=== PATIENT | male | born 1965 | race Caucasian/White ===

== ENCOUNTER → 2017-05-09 | Outpatient (CLI) | payer OTHER ==
[~2017-05-09] MED LIST: LISI-519 PO; WALKER WHEELS/F1 MIS
== END ==
LOC: CPRE 12:27
PROVIDERS: ATTEND Neurological Surgery
DX: M48.02 Spinal stenosis, cervical region (principal); M50.30 Other cervical disc degeneration, unspecified cervical region; M47.12 Other spondylosis with myelopathy, cervical region

== ENCOUNTER 2017-05-16 06:01 | Observation (INO) | payer OTHER ==
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
[~2017-05-16] VITALS: Ht 165.1 cm; Wt 74.9 kg
[2017-05-16] MEDS ORDERED: LACTATED RINGER'S 1000 ML IV PRN (06:15)
[2017-05-16] MEDS ORDERED: SODIUM CHLORID 0.9% 500 ML IV PRN (06:15)
[2017-05-16] MEDS ORDERED: METOPROLOL TARTRATE 25 MG TAB PO PRN (06:15)
[2017-05-16] MEDS ORDERED: POVIDONE IODINE 5% (ANTISEPSIS KIT) 4 APPLICATIONS EACH NARE PRN (06:15)
[2017-05-16] MEDS ORDERED: CHLORHEXIDINE GLUCONATE 2 % 1 PACK (2 CLOTHS) TOPICAL PRN (06:15)
[2017-05-16] MEDS ORDERED: SODIUM CHLOR 0.9% 1000 ML INJ 1,000 ML IV SCH (06:15)
[2017-05-16] MEDS ORDERED: VANCOMYCIN 1000 MG/NS 250 ML IV SCH ×2 (06:30)
[2017-05-16] MEDS ORDERED: BUPIVACAINE/EPINEPHRINE 0.5% PF 30 ML VIAL ONE (06:46)
[2017-05-16] MEDS ORDERED: THROMBIN (TOPICAL) 5,000 UNIT VIAL ONE (06:46)
[2017-05-16] MEDS ORDERED: VANCOMYCIN HCL 1000 MG VIAL ONE (06:46)
[2017-05-16] MEDS ORDERED: GELFOAM SIZE 100 ONE (06:47)
[2017-05-16] MEDS ORDERED: MIDAZOLAM HCL 2 MG/2 ML VIAL ONE (08:00)
[2017-05-16] MEDS ORDERED: FAMOTIDINE 20 MG/2 ML VIAL ONE (08:01)
[2017-05-16] MEDS ORDERED: DEXAMETHASONE SOD PHOS 4 MG/ML VIAL ONE (09:47)
[2017-05-16] MEDS ORDERED: PROPOFOL 500 MG/50 ML INJ 100 ML ONE (10:03)
[2017-05-16] MEDS ORDERED: PROPOFOL 200 MG/20 ML AMP IV ONE (12:00)
[2017-05-16] MEDS ORDERED: LIDOCAINE HCL 1% PF 5 ML SYRINGE OTHER ONE (12:00)
[2017-05-16] MEDS ORDERED: PHENYLEPH/NS 1000 MCG/10 ML SYR IV ONE (12:00)
[2017-05-16] MEDS ORDERED: ONDANSETRON HCL 4 MG/2 ML VIAL IV PUSH ONE (12:00)
[2017-05-16] MEDS ORDERED: LACTATED RINGER'S 1000 ML INJ 1,000 ML IV ONE (12:00)
[2017-05-16] MEDS ORDERED: DEXAMETHASONE SOD PHOS 4 MG/ML VIAL IV ONE (12:00)
[2017-05-16] MEDS ORDERED: NEOSTIGMINE 3 MG/3 ML SYR IV ONE (12:00)
[2017-05-16] MEDS ORDERED: ePHEDrine/NS 25 MG/5 ML SYR IV ONE (12:00)
[2017-05-16] MEDS ORDERED: ROCURONIUM INJ 50 MG/5 ML SYRINGE IV PUSH ONE (12:00)
[2017-05-16] MEDS ORDERED: NORMOSOL R INJ 2,000 ML IV ONE (12:00)
[2017-05-16] MEDS ORDERED: DO NOT ADM ANY ANTICOAGULANT DRUGS PRN (12:11)
--- NOTE | 2017-05-16 12:31 | RADRPT ---
EXAM DATE/TIME: 05/16/2017 09:22 [facility] COMPARISON: No previous studies available for comparison. INDICATIONS : Post-op C5-C6, C6-C7 anterior cervical fusion. MEDICAL HISTORY : None. SURGICAL HISTORY : None. ENCOUNTER: Initial ACUITY: 1 day PAIN SCORE: Non-responsive. LOCATION: neck FINDINGS: Anterior fusion hardware is noted at C5 through C7 in good position. No acute fracture or prevertebra l soft tissue swelling is noted. CONCLUSION: Status post anterior cervical fusion at C5 through C7. Galileo Mead MD on May 16, 2017 at 12:29 Board Certified Radiologist. This report was verified electronically.
[2017-05-16] MEDS ORDERED: *MEPERIDINE 25 MG INJ VIAL PERIprocedural Use ONLY ONE (12:35)
--- NOTE | 2017-05-16 12:39 | RADRPT ---
EXAM DATE/TIME: 05/16/2017 09:22 [facility] COMPARISON: No previous studies available for comparison. INDICATIONS : C5-C6, C6-C7 anterior cervical fusion. Level localization. MEDICAL HISTORY : None. SURGICAL HISTORY : None. ENCOUNTER: Initial ACUITY: 1 day PAIN SCORE: Non-responsive. LOCATION: neck FINDINGS: A single magnified C-arm spot views in lateral projection of the cervical spine. There is an anterior probe projecting towards the C6-C7 disc space. There is disc space narrowing at C5-C6 and C6-C7. A m ild grade 1 anterolisthesis of C4 on C5 and C3 on C4. CONCLUSION: Limited image as detailed above. Arvin Clinton Jr., MD on May 16, 2017 at 12:25 Board Certified Radiologist. This report was verified electronically.
--- NOTE | 2017-05-16 12:41 | PD.OP ---
Fabricio Rogel MD Operative Report Date of Surgery: May 16, 2017 Preoperative Diagnosis: Intractable neck pain with myeloradiculopathy; C5-6 and C6-7 severe disc degeneration with disc osteophyte complex associated spinal and foraminal stenosis with spinal cord compression Postoperative Diagnosis: Same Procedure: Anterior cervical C5-6 and C6-7 interbody fusion; anterior C5-7 cervical plate placement; C5-6 and C6-7 interbody cage placement; microsurgical technique Anesthesia: Gen. endotracheal by Jairo deshpande Surgeon: Damon Spicer M.D. Manager Consumer(s): Bonita Kirby Operation and Findings: Following administration of general endotracheal anesthesia with the neck maintaining a neutral position in a Poinsett collar, the patient received a gram of vancomycin and Decadron 10 mg intravenously. Sequential compression devices were placed in supine position on a Vignesh table and all pressure points adequately padded. The head secured in a donut and anterior cervical region then shaved and prepped with Chloraprep and sterilely draped with Ioban along with the usual sterile draping. A transverse skin incision on the left side of the neck was then made after infiltrating the skin with 0.5% Marcaine with epinephrine solution extending down through the platysma. At the anterior border of the sternocleidomastoid further dissection was undertaken developing a plane between the carotid sheath laterally and the trachea esophagus medially. The prevertebral fascia was exposed and dissected out. The medial attachments of the longus colli muscles were detached and a self-retaining retractor used for exposure. The C5-6 disc space was localized with a marking the disc space and using lateral fluoroscopy. Wilson distraction screws 14 mm length were placed one in the C5 and one in the C7 body interbody distraction and exposure. There was significant disc degeneration with disc height collapse and anterior osteophytes noted at the C5-6 and C6-7 levels and the osteophytes were resected with a Leksell and annulus incised with a 15 blade and further dissection undertaken using microtechnique with microscope magnification. Diskectomy was undertaken with pituitaries and the endplates were also decorticated with curettes and drill bit. And more posteriorly there was disk osteophyte complex compressing the thecal sac along with a significant uncovertebral joint hypertrophy with foraminal stenosis which was decompressed along with removal of the posterior longitudinal ligaments at both levels. The foramen was decompressed bilaterally using a Kerrison's and palpation with a nerve hook, the exiting nerve roots were felt to be free. The area was then copiously irrigated. I then placed a Peek cage packed with local autograft bone at the C5-6 and C6-7 interspaces under fluoroscopy guidance. Wilson distraction pins were removed and the holes plugged with Gelfoam for hemostasis. In order to facilitate the fusion and provide stabilization, a Precision spine cervical plate was then placed with two 14 mm variable angle screws in the C5 body, one in the C6 body and two 14 mm fixed angle screws in the C7 body. The plate screw locking mechanism was then engaged. AP and lateral fluoroscopy confirmed good placement of the construct and the retractor was then removed. Muscular bleeding points were cauterized with bipolar cautery and Gelfoam was then also used for hemostasis which was removed. The platysma was then approximated using 3-0 Vicryl interrupted stitches and 3-0 Vicryl subcuticular stitch also placed in an interrupted fashion, and final skin closure was with Mastisol and Steri-Strips. Sterile dressing was then applied. The neck immobilized in a Poinsett collar. The patient was then extubated and taken to the recovery room. There are no intraoperative complications and all sponge and needle counts were correct at the end of procedure. Estimated blood loss was about 50 cc. The patient did undergo intraoperative neurologic monitoring which remained stable throughout the surgery. Damon Spicer MD May 16, 2017 12:41
[2017-05-16] MEDS ORDERED: MORPHINE SULFATE 4 MG/ML INJ IV PUSH PRN (13:15)
[2017-05-16] MEDS ORDERED: cloNIDine HCL 0.1 MG TAB PO PRN (13:15)
[2017-05-16] MEDS ORDERED: CYCLOBENZAPRINE HCL 10 MG TAB PO PRN (13:15)
[2017-05-16] MEDS ORDERED: MENTHOL LOZENGE BUCCAL PRN (13:15)
[2017-05-16] MEDS ORDERED: ACETAMINOPHEN 325 MG TAB PO PRN (13:15)
[2017-05-16] MEDS ORDERED: SODIUM CHLORIDE 0.9% FLUSH 10 ML FLUSH IV FLUSH PRN (13:15)
[2017-05-16 13:30] VITALS: BP 116/73; PULSE 74; RESP 16; TEMP 96.7; O2SAT 97
[2017-05-16] MEDS ORDERED: RESP: ALBUTEROL 2.5 MG/3 ML NEB (PRN) NEB (13:30)
[2017-05-16] MEDS ORDERED: ONDANSETRON HCL 4 MG/2 ML VIAL IV PUSH PRN (13:30)
[2017-05-16] MEDS ORDERED: NS + KCL 20 MEQ INJ 1,000 ML IV SCH (13:30)
[2017-05-16] MEDS ORDERED: PROMETHAZINE INJ 25 MG/ML VIAL IM PRN (13:30)
[2017-05-16] MEDS ORDERED: MAGNESIUM HYDROXIDE SUSP 30 ML CUP PO PRN (13:30)
[2017-05-16] MEDS: ACETAMINOPHEN/HYDROcodone 325 MG/10 MG TAB PO PRN ×3 (13:55→22:52)
[2017-05-16 16:00] VITALS: BP 125/97; PULSE 82; RESP 16; TEMP 96; O2SAT 96
[2017-05-16 16:40] VITALS: BP 114/68; PULSE 82; RESP 18; TEMP 97.1; O2SAT 98
[2017-05-16] MEDS: DEXAMETHASONE SOD PHOS 4 MG/ML VIAL IV PUSH SCH ×2 (17:59→22:53)
[2017-05-16 19:30] VITALS: BP 134/87; PULSE 85; RESP 20; TEMP 98.8; O2SAT 97
[2017-05-16 19:53] VITALS: O2SAT 96
[2017-05-16] MEDS ORDERED: ZOLPIDEM TARTRATE 5 MG TAB PO PRN (21:00)
[2017-05-16] MEDS: SODIUM CHLORIDE 0.9% FLUSH 10 ML FLUSH IV FLUSH SCH (21:00)
[2017-05-16] MEDS: DOCUSATE SODIUM 100 MG CAP PO SCH (22:54)
[2017-05-17] VITALS (7 sets, daily range): BP systolic 134–156; BP diastolic 88–97; PULSE 80–90; RESP 18–20; TEMP 96.6–98.4; O2SAT 94–98
[2017-05-17] MEDS: DEXAMETHASONE SOD PHOS 4 MG/ML VIAL IV PUSH SCH (04:50)
[2017-05-17] MEDS: ACETAMINOPHEN/HYDROcodone 325 MG/10 MG TAB PO PRN ×4 (05:19→23:18)
[2017-05-17] MEDS: PANTOPRAZOLE SOD 40 MG DELAYED RELEASE TAB PO SCH (08:39)
[2017-05-17] MEDS: SODIUM CHLORIDE 0.9% FLUSH 10 ML FLUSH IV FLUSH SCH ×2 (08:39→21:00)
[2017-05-17] MEDS: DOCUSATE SODIUM 100 MG CAP PO SCH ×2 (08:39→23:19)
--- NOTE | 2017-05-17 09:25 | HHI.NSPN ---
History Chief Complaint: Mild neck discomfort. Interval History 05/17/17: Pt underwent an anterior cervical C5-6 and C6-7 interbody fusion; anterior C5-7 cervical plate placement; C5-6 and C6-7 interbody cage placement; microsurgical technique on 05/16/17. Pt doing well this morning. Mild posterior neck discomfort. No radiculopathy in UEs. Paresthesias stable in fingers. Pt voiding well. Review of Systems General: Negative for: fever, chills, insomnia Respiratory: Negative for: shortness of breath, cough, sputum Cardiovascular: Negative for: chest pain Gastrointestinal: Negative for: nausea, vomitting, diarrhea, constipation Exam Results Vital Signs Date Time Temp Pulse Resp B/P (MAP) Pulse Ox O2 Delivery O2 Flow Rate FiO2 05/17/17 08:47 96 Nasal Cannula 2.00 05/17/17 04:07 98.4 86 20 142/94 (110) Intake and Output 05/17/17 05/17/17 05/18/17 08:00 16:00 00:00 Intake Total 360 ml Output Total 1800 ml Balance -1440 ml Physical Examination Resp: CTA bilaterally Heart: NSR no murmurs Abd: Soft positive bs Skin: No cyanosis or erythema. Bandage changed. No signs of infection or complication. New bandage placed. Muscle: Moves all 4 extremities well. Ambulating short distance. Neuro: Pt awake and alert. Pupils equal. Follows commands well. Speech clear and appropriate. Lab, Micro, Other Results Last Impressions Cervical Spine X-Ray 05/16/17 0000 Signed Impressions: Service Date/Time: Tuesday, May 16, 2017 09:22 - CONCLUSION: Limited image as detailed above. Arvin Clinton Jr., MD Medical Decision Making Impression and Plan A: 51 y/o M s/p anterior cervical C5-6 and C6-7 interbody fusion; anterior C5- 7 cervical plate placement; C5-6 and C6-7 interbody cage placement; microsurgical technique P: Discharge pt home. Keep incision clean and dry. Discussed restrictions. Nahum Vale May 17, 2017 9:25 am
[2017-05-17] MEDS: ALUMINUM/MAGNESIUM/SIMETH 30 ML CUP PO PRN (23:20)
[2017-05-18 00:16] VITALS: BP 145/96; PULSE 78; RESP 18; TEMP 97.8; O2SAT 96
[2017-05-18 04:10] VITALS: BP 131/90; PULSE 72; RESP 18; TEMP 98; O2SAT 96
[2017-05-18] MEDS: ACETAMINOPHEN/HYDROcodone 325 MG/10 MG TAB PO PRN (04:53)
[2017-05-18] MEDS: ALUMINUM/MAGNESIUM/SIMETH 30 ML CUP PO PRN (07:52)
[2017-05-18] MEDS: DOCUSATE SODIUM 100 MG CAP PO SCH (07:53)
[2017-05-18] MEDS: PANTOPRAZOLE SOD 40 MG DELAYED RELEASE TAB PO SCH (07:53)
[2017-05-18] MEDS: SODIUM CHLORIDE 0.9% FLUSH 10 ML FLUSH IV FLUSH SCH (07:57)
[2017-05-18 08:00] VITALS: BP 146/96; PULSE 76; RESP 18; TEMP 97; O2SAT 95
[2017-05-18 09:57] VITALS: O2SAT 92
[2017-05-18] MEDS ORDERED: WALKER WHEELS/F1 MIS (10:12)
--- NOTE | 2017-05-18 12:00 | HHI.NSPN ---
(Monse Villar) Note Status Status: Progress Note (Monse Villar) Interval History Interval History 05/17/17: Pt underwent an anterior cervical C5-6 and C6-7 interbody fusion; anterior C5-7 cervical plate placement; C5-6 and C6-7 interbody cage placement; microsurgical technique on 05/16/17. Pt doing well this morning. Mild posterior neck discomfort. No radiculopathy in UEs. Paresthesias stable in fingers. Pt voiding well. 05/18/17: sitting up in chair, feeling well, ready to go home (Monse Villar) Labs, Micro, & Vital Signs Results Date Time Temp Pulse Resp B/P (MAP) Pulse Ox O2 Delivery O2 Flow Rate FiO2 05/18/17 09:57 92 21 05/18/17 08:00 97.0 76 18 146/96 (113) 95 05/18/17 04:10 98.0 72 18 131/90 (104) 96 05/18/17 00:16 97.8 78 18 145/96 (112) 96 05/17/17 20:06 96.6 86 18 156/97 (116) 96 05/17/17 16:00 98.0 80 18 143/91 (108) 95 05/17/17 12:00 98.4 90 18 155/93 (113) 95 Constitutional Vital Signs Date Time Temp Pulse Resp B/P (MAP) Pulse Ox O2 Delivery O2 Flow Rate FiO2 05/18/17 09:57 92 21 05/18/17 08:00 97.0 76 18 146/96 (113) 95 05/18/17 04:10 98.0 72 18 131/90 (104) 96 05/18/17 00:16 97.8 78 18 145/96 (112) 96 05/17/17 20:06 96.6 86 18 156/97 (116) 96 05/17/17 16:00 98.0 80 18 143/91 (108) 95 05/17/17 12:00 98.4 90 18 155/93 (113) 95 (Monse Villar) Physical Exam Wound clean and dry wtih dressing in place Neck: immobilized by White collar Motor: moving all four extremities well Alert and oriented, no acute distress. (Monse Villar) Medications Current Medications Current Medications Medications (Trade) Dose Ordered Sig/Jimbo Route PRN Reason Start Time Stop Time Status Last Admin Dose Admin Lactated Ringer's 1,000 ml @ 30 mls/hr Q24H PRN IV SEE LABEL COMMENTS 05/16/17 06:15 05/19/17 06:14 05/16/17 06:40 Sodium Chloride 500 ml @ 30 mls/hr [id number] PRN IV SEE LABEL COMMENTS 05/16/17 06:15 05/19/17 06:14 Metoprolol Tartrate (Lopressor) 25 mg DIRECTOR EHS PRN PO SEE LABEL COMMENTS 05/16/17 06:15 05/19/17 06:14 Povidone Iodine (Betadine 5% Antisepsis Kit) 1 applic DIRECTOR [facility] PRN EACH NARE SEE LABEL COMMENTS 05/16/17 06:15 05/19/17 06:14 05/16/17 06:41 Chlorhexidine Gluconate (Chlorhexidine 2% Cloth) 3 pack DIRECTOR [facility] PRN TOPICAL SEE LABEL COMMENTS 05/16/17 06:15 05/19/17 06:14 05/16/17 06:15 Sodium Chloride (NS Flush) 2 ml UNSCH PRN IV FLUSH FLUSH AFTER USING IV ACCESS 05/16/17 13:15 Sodium Chloride (NS Flush) 2 ml BID IV FLUSH 05/16/17 21:00 05/18/17 07:57 Docusate Sodium (Colace) 100 mg BID PO 05/16/17 21:00 05/18/17 07:53 Magnesium Hydroxide (Milk Of Magnesia Liq) 30 ml DAILY PRN PO CONSTIPATION 05/16/17 13:30 05/17/17 18:02 Al Hydrox/Mg Hydrox/Simethicone (Mag-Al Plus Susp Liq) 30 ml Q6H PRN PO DYSPEPSIA 05/16/17 13:15 05/18/17 07:52 Pantoprazole Sodium (Protonix) 40 mg DAILY PO 05/17/17 09:00 05/18/17 07:53 Ondansetron HCl (Zofran Inj) 4 mg Q6H PRN IV PUSH NAUSEA OR VOMITING 05/16/17 13:30 Promethazine HCl (Phenergan Inj) 25 mg Q4H PRN IM NAUSEA OR VOMITING 05/16/17 13:30 Acetaminophen/ Hydrocodone Bitart ([place] 10-325 Mg) 1 tab Q4H PRN PO PAIN SCALE 1 TO 5 05/16/17 13:15 05/18/17 04:53 Acetaminophen/ Hydrocodone Bitart ([place] 10-325 Mg) 2 tab Q4H PRN PO PAIN SCALE 6 TO 10 05/16/17 13:15 05/17/17 05:19 Morphine Sulfate (Morphine Inj) 4 mg Q2H PRN IV PUSH breakthrough pain 7 TO 10 05/16/17 13:15 Cyclobenzaprine HCl (Flexeril) 10 mg Q8H PRN PO MUSCLE SPASM 05/16/17 13:15 Clonidine (Catapres) 0.1 mg Q6H PRN PO SYS BP GREATER THAN 170 MMHG 05/16/17 13:15 Acetaminophen (Tylenol) 650 mg Q4H PRN PO TEMPERATURE > 101.5 F 05/16/17 13:15 Menthol ([place] Lawson) 1 lozenge UNSCH PRN BUCCAL SORE THROAT 05/16/17 13:15 Zolpidem Tartrate (Ambien) 5 mg HS PRN PO INSOMNIA 05/16/17 21:00 Albuterol Sulfate (Albuterol Neb) 2.5 mg Q4HR NEB PRN NEB WHEEZING 05/16/17 13:30 (Monse Villar) Medical Decision Making MDM Remarks 51 y/o male s/p anterior cervical C5-6 and C6-7 interbody fusion; anterior C5-7 cervical plate placement; C5-6 and C6-7 interbody cage placement; microsurgical technique 05/17/17 (Monse Villar) Plan Plan Remarks dc home today discuss wound care and activity restrictions, f/u Dr. Spicer's office at his scheduled postop visit (Monse Villar) Attending Statement The exam, history, and the medical decision-making described in the above note were completed with the assistance of the mid-level provider. I reviewed and agree with the findings presented. I attest that I had a [id number] encounter with the patient on the same day, and personally performed and documented my assessment and findings in the medical record. (Jamie Huerta MD) Monse Villar May 18, 2017 12:00 Jamie Huerta MD May 23, 2017 09:54
== END 2017-05-18 12:03 | disposition home or self-care (01) ==
LOC: HSDC 06:01 → HSDI 12:37 → N06B 13:19
PROVIDERS: ADMIT Neurological Surgery; ATTEND Neurological Surgery
DX: M48.02 Spinal stenosis, cervical region (principal); I10 Essential (primary) hypertension; G95.20 Unspecified cord compression; M25.78 Osteophyte, vertebrae; G95.89 Other specified diseases of spinal cord; M54.12 Radiculopathy, cervical region
CPT/HCPCS: 00600; 20938; 22551; 22552; 22853; 72020; 72040; 76000; 94150; 96365; 96366; 96375; 96376; 97116; 97162; C1713; G0378; G8987; G8988; J0690; J1100; J2175; J2250; J2370; J2405; J2710; J3010; J3370; J3480; J7120; L0150; L0172